=== PATIENT | female | born 1955 | race Hispanic/Latino ===

== ENCOUNTER 2019-05-24 22:46 | Observation (INO) | payer OTHER ==
[2019-05-24 23:41] LABS: Absolute Lymphocytes (CBC) 1.9 K/uL (0.7-4.9); Basophils % 1.3 % (0-1.3); Hematocrit 36.9 % (36.0-45.0); Lymphocytes % 35.5 % (15.3-44.8); MPV 9.9 fL (7.6-11.3); RBC Red Blood Cell Count 4.19 M/uL (3.86-4.86)
[2019-05-24 23:51] LABS: ALT/SGPT 26 U/L (12-78); AST/SGOT 29 U/L (15-37); Albumin 4.3 g/dL (3.4-5.0); Alkaline Phosphatase 78 U/L (45-117); BUN Blood Urea Nitrogen 12 mg/dL (7-18); Bicarbonate 30 mmol/L (21-32); Bilirubin Direct 0.1 mg/dL (0-0.2); Bilirubin Total 0.5 mg/dL (0.2-1.0); Glucose Level 100 mg/dL (74-106); Magnesium 2.1 mg/dL (1.8-2.4); NT PRO-BNP 87 pg/mL (<125); Potassium 3.6 mmol/L (3.5-5.1); Protein, Total 7.6 g/dL (6.4-8.2); Sodium Level 142 mmol/L (136-145); Troponin (Emerg Dept Use Only) < 0.02 ng/mL (0.0-0.045)
[2019-05-24 23:58] LABS: Protime INR 0.96
[2019-05-25] MEDS ORDERED: MAGNE/ALUM HYDROXD 30 ML UCUP ONE (00:22)
[2019-05-25] MEDS ORDERED: LIDOCAINE VISCOUS 2% SOLN 15 ML UDC ONE (00:22)
[2019-05-25] MEDS ORDERED: ALPRAZOLAM 0.25 MG TABLET PO PRN (00:57)
[2019-05-25] MEDS ORDERED: ACETAMINOPHEN 500 MG TAB PO PRN (00:57)
[2019-05-25] MEDS ORDERED: MORPHINE 4 MG/ML SYR IV PRN (00:57)
--- NOTE | 2019-05-25 01:24 | ER ---
Nurse's Notes [facility] Name: Frances Ramos Age: 64 yrs Sex: Female : 1955 Arrival Date: 05/24/2019 Time: 22:51 Bed 5 Private MD: Diagnosis: Chest pain, unspecified Presentation: 05/24 22:52 Presenting complaint: Patient states: "I was sitting down and all the sudden I felt aj1 dizzy and my chest started hurting and I took my blood pressure and it was high, so I took half of my blood pressure medicine and it was still high. Then I started to feel like my tongue was swelling" Reports midsternal chest pain that she describes as a burning sensation. States the pain does not radiates. Denies palpitations or shortness of breath. Transition of care: patient was not received from another setting of care. Onset of symptoms was May 24, 2019 at 20:30. Risk Assessment: Do you want to hurt yourself or someone else? Patient reports no desire to harm self or others. Initial Sepsis Screen: Does the patient meet any 2 criteria? No. Patient's initial sepsis screen is negative. Does the patient have a suspected source of infection? No. Patient's initial sepsis screen is negative. Care prior to arrival: None. 22:52 Method Of Arrival: Ambulatory aj1 22:52 Acuity: TRINITY 3 aj1 Triage Assessment: 22:56 General: Appears in no apparent distress. comfortable, Behavior is calm, cooperative, aj1 appropriate for age. Pain: Complains of pain in mid-sternal area. Neuro: Level of Consciousness is awake, alert, obeys commands. Cardiovascular: Reports chest pain, Patient's skin is warm and dry. Respiratory: Airway is patent Respiratory effort is even, unlabored, Respiratory pattern is regular, symmetrical. Historical: - Allergies: 22:56 No Known Allergies; aj1 - Home Meds: 22:56 losartan oral oral [Active]; multivitamin oral oral [Active]; Probiotic oral oral aj1 [Active]; - PMHx: 22:56 Hypertension; aj1 - Immunization history:: Flu vaccine is not up to date. - Social history:: Smoking status: Patient/guardian denies using tobacco. - Ebola Screening: : Patient denies travel to an Ebola-affected area in the 21 days before illness onset. Screenin:15 Abuse screen: Denies threats or abuse. Denies injuries from another. Nutritional rr5 screening: No deficits noted. Tuberculosis screening: No symptoms or risk factors identified. Fall Risk IV access (20 points). Total Posey Fall Scale indicates No Risk (0-24 pts). Assessment: 23:15 General: Appears in no apparent distress. uncomfortable, Behavior is calm, cooperative, rr5 appropriate for age. Pain: Complains of pain in chest Pain does not radiate. Pain currently is 5 out of 10 on a pain scale. Quality of pain is described as burning, Pain began suddenly, Is intermittent. Neuro: Level of Consciousness is awake, alert, obeys commands, Oriented to person, place, time, situation, Appropriate for age Reports dizziness. Cardiovascular: Reports chest pain, high BP Capillary refill < 3 seconds Patient's skin is warm and dry. Respiratory: Airway is patent Respiratory effort is even, unlabored, Respiratory pattern is regular, symmetrical. GI: No signs and/or symptoms were reported involving the gastrointestinal system. : No signs and/or symptoms were reported regarding the genitourinary system. EENT: No signs and/or symptoms were reported regarding the EENT system. Derm: Skin is intact, is healthy with good turgor, Skin temperature is warm. Musculoskeletal: Circulation, motion, and sensation intact. Capillary refill < 3 seconds. 05/25 00:25 Reassessment: Patient appears in no apparent distress at this time. Patient is alert, rr5 oriented x 3, equal unlabored respirations, skin warm/dry/pink. review done by ED provider with order made and carried out. for repeat troponin at 0130H. 01:10 Reassessment: Patient appears in no apparent distress at this time. Patient and/or rr5 family updated on plan of care and expected duration. Pain level reassessed. Patient is alert, oriented x 3, equal unlabored respirations, skin warm/dry/pink. 02:00 Reassessment: Patient appears in no apparent distress at this time. Patient is alert, rr5 oriented x 3, equal unlabored respirations, skin warm/dry/pink. patient transferred to medical surgical floor, awake and alert, no complaints made. Vital Signs: 05/24 22:56 BP 177 / 94; Pulse 60; Resp 18; Temp 97.5; Pulse Ox 96% on R/A; Weight 68.95 kg (R); aj1 Height 4 ft. 11 in. (149.86 cm) (R); Pain 11/13; 05/25 00:15 BP 163 / 80; Pulse 59; Resp 16; Pulse Ox 98% on R/A; rr5 01:00 BP 146 / 75; Pulse 56; Resp 16; Pulse Ox 95% on R/A; lp1 01:46 BP 145 / 74; Pulse 54; Resp 14; Pulse Ox 98% on R/A; lp1 05/24 22:56 Body Mass Index 30.70 (68.95 kg, 149.86 cm) aj1 ED Course: 05/24 22:51 Patient arrived in ED. cf2 22:55 Triage completed. aj1 22:56 Arm band placed on Patient placed in an exam room. aj1 23:10 EKG done, by ED staff, reviewed by Seamus Martinez MD. rr5 23:15 Zaheer Orellana RN is Primary Nurse. rr5 23:15 Patient has correct armband on for positive identification. Placed in gown. Bed in low rr5 position. Call light in reach. Side rails up X2. monitor technician on. Pulse ox on. NIBP on. 23:17 Seamus Martinez MD is Attending Physician. tw4 23:18 Patient maintains SpO2 saturation greater than 95% on room air. rr5 23:20 Inserted saline lock: 20 gauge in left antecubital area, using aseptic technique. rr5 ,using aseptic technique. inserted by [facility] tech Blood collected. 23:31 XRAY Chest (1 view) In Process Unspecified. EDMS 05/25 01:20 Messi Tucker MD is Hospitalizing Provider. tw4 01:43 No provider procedures requiring assistance completed. Patient admitted, IV remains in lp1 place. Administered Medications: 00:26 Drug: GI Cocktail without - (Maalox Suspension 30 ml, Lidocaine Liquid 2 % 15 rr5 ml) Route: PO; 02:00 Follow up: Response: No adverse reaction rr5 Outcome: 01:23 Decision to Hospitalize by Provider. tw4 01:43 Condition: stable lp1 01:43 Instructed on the need for admit. 01:47 Admitted to Med/surg room 212, with chart, Report called to ASAD Crocker lp1 02:05 Patient left the ED. lp1 Signatures: Dispatcher [employer] EDMalini Noonan RN RN aj1 Sarah Núñez RN RN lp1 Seamus Martinez MD MD tw4 Zaheer Orellana RN RN rr5 Lizet Stephens 2
--- NOTE | 2019-05-25 01:24 | EDPHYS ---
Physician Documentation [facility] Name: Frances Ramos Age: 64 yrs Sex: Female : 1955 Arrival Date: 05/24/2019 Time: 22:51 Bed 5 Private MD: ED Physician Seamus Martinez HPI: 05/25 00:51 This 64 yrs old Female presents to ER via Ambulatory with complaints of Chest tw4 Pain. 00:51 The patient or guardian reports chest pain that is located primarily in the anterior tw4 chest wall. Onset: today. The pain does not radiate. Associated signs and symptoms: Pertinent positives: nausea, Pertinent negatives: abdominal pain, cough, vomiting. The chest pain is described as dull, a heaviness. Duration: The patient or guardian reports a single episode. Modifying factors: The symptoms are alleviated by nothing. the symptoms are aggravated by nothing. The patient has not experienced similar symptoms in the past. Historical: - Allergies: 05/24 22:56 No Known Allergies; aj1 - Home Meds: 22:56 losartan oral oral [Active]; multivitamin oral oral [Active]; Probiotic oral oral aj1 [Active]; - PMHx: 22:56 Hypertension; aj1 - Immunization history:: Flu vaccine is not up to date. - Social history:: Smoking status: Patient/guardian denies using tobacco. - Ebola Screening: : Patient denies travel to an Ebola-affected area in the 21 days before illness onset. ROS: 05/25 00:51 Constitutional: Negative for fever, chills, and weight loss, Eyes: Negative for injury, tw4 pain, redness, and discharge, Respiratory: Negative for shortness of breath, cough, wheezing, and pleuritic chest pain, Abdomen/GI: Negative for abdominal pain, nausea, vomiting, diarrhea, and constipation, Back: Negative for injury and pain, MS/Extremity: Negative for injury and deformity, Skin: Negative for injury, rash, and discoloration, Neuro: Negative for headache, weakness, numbness, tingling, and seizure. Cardiovascular: Positive for chest pain, Negative for edema, orthopnea, palpitations. Exam: 00:51 Constitutional: This is a well developed, well nourished patient who is awake, alert, tw4 and in no acute distress. Head/Face: Normocephalic, atraumatic. Chest/axilla: Normal chest wall appearance and motion. Nontender with no deformity. No lesions are appreciated. Cardiovascular: Regular rate and rhythm with a normal S1 and S2. No gallops, murmurs, or rubs. Normal PMI, no JVD. No pulse deficits. Respiratory: Lungs have equal breath sounds bilaterally, clear to auscultation and percussion. No rales, rhonchi or wheezes noted. No increased work of breathing, no retractions or nasal flaring. Abdomen/GI: Soft, non-tender, with normal bowel sounds. No distension or tympany. No guarding or rebound. No evidence of tenderness throughout. Vital Signs: 05/24 22:56 BP 177 / 94; Pulse 60; Resp 18; Temp 97.5; Pulse Ox 96% on R/A; Weight 68.95 kg (R); aj1 Height 4 ft. 11 in. (149.86 cm) (R); Pain 5/10; 05/25 00:15 BP 163 / 80; Pulse 59; Resp 16; Pulse Ox 98% on R/A; rr5 01:00 BP 146 / 75; Pulse 56; Resp 16; Pulse Ox 95% on R/A; lp1 01:46 BP 145 / 74; Pulse 54; Resp 14; Pulse Ox 98% on R/A; lp1 05/24 22:56 Body Mass Index 30.70 (68.95 kg, 149.86 cm) aj1 MDM: 05/24 23:18 Patient medically screened. tw4 05/25 00:51 Differential diagnosis: acute myocardial infarction, acute pericarditis, coronary tw4 artery disease chest wall pain, costochondritis, pancreatitis, peptic ulcer disease, pericarditis, pulmonary embolus, thoracic aortic disection. Data reviewed: vital signs, nurses notes. Data interpreted: Pulse oximetry: Interpretation: normal. Test interpretation: by ED physician or midlevel provider: ECG, plain radiologic studies. :18 Counseling: I had a detailed discussion with the patient and/or guardian regarding: the tw4 historical points, exam findings, and any diagnostic results supporting the discharge/admit diagnosis. 05/24 23:15 Order name: Basic Metabolic Panel tw4 05/24 23:15 Order name: CBC with Diff tw4 05/24 23:15 Order name: LFT's tw4 05/24 23:15 Order name: Magnesium tw4 05/24 23:15 Order name: NT PRO-BNP tw4 05/24 23:15 Order name: PT-INR 4 05/24 23:15 Order name: Troponin (emerg Dept Use Only) tw 05/24 23:15 Order name: XRAY Chest (1 view) tw4 05/25 01:05 Order name: Echo with Doppler EDDE 05/25 01:05 Order name: Basic Metabolic Panel EDDE 05/25 01:05 Order name: CBC with Automated Diff EDDE 05/25 01:07 Order name: Troponin I EDDE 05/25 01:07 Order name: Troponin I EDDE 05/24 23:15 Order name: EKG; Complete Time: 23:16 tw4 05/24 23:15 Order name: Cardiac monitoring; Complete Time: 23:15 4 05/24 23:15 Order name: EKG - Nurse/Tech; Complete Time: 23:15 4 05/24 23:15 Order name: IV Saline Lock; Complete Time: 23:16 tw4 05/24 23:15 Order name: Labs collected and sent; Complete Time: 23:16 tw4 05/24 23:15 Order name: O2 Per Protocol; Complete Time: 23:16 tw4 05/24 23:15 Order name: O2 Sat Monitoring; Complete Time: 23:16 tw4 05/25 01:05 Order name: Heart Healthy EDDE EC:18 Rate is 58 beats/min. Rhythm is regular. QRS [place] is Normal. [place] interval is normal. QRS tw4 interval is normal. QT interval is normal. No Q waves. T waves are Flattened in lead V3. No ST changes noted. Clinical impression: NSR w/ Non-specific ST/T Changes. Interpreted by me. Reviewed by me. Administered Medications: 00:26 Drug: GI Cocktail without - (Maalox Suspension 30 ml, Lidocaine Liquid 2 % 15 rr5 ml) Route: PO; 02:00 Follow up: Response: No adverse reaction rr5 Disposition: 05/25/19 01:23 Hospitalization ordered by Messi Tucker for Observation. Preliminary diagnosis is Chest pain, unspecified. - Bed requested for Telemetry/MedSurg (observation). - Status is Observation. lp1 - Condition is Stable. - Problem is new. - Symptoms have improved. UTI on Admission? No Signatures: Dispatcher [employer] EDMS Malini Barth, RN RN aj1 Sarah Núñez RN RN lp1 Lo Martin, ASAD RN Seamus Martinez MD MD tw4 Zaheer Orellana, RN RN rr5 Corrections: (The following items were deleted from the chart) 01:25 01:23 Hospitalization Ordered by Messi Tucker MD for Observation. Preliminary cg diagnosis is Chest pain, unspecified. Bed requested for Telemetry/MedSurg (observation). Status is Observation. Condition is Stable. Problem is new. Symptoms have improved. UTI on Admission? No. tw4 02:05 01:25 05/25/2019 01:23 Hospitalization Ordered by Messi Tucker MD for Observation. lp1 Preliminary diagnosis is Chest pain, unspecified. Bed requested for Telemetry/MedSurg (observation). Status is Observation. Condition is Stable. Problem is new. Symptoms have improved. UTI on Admission? No. cg
[2019-05-25 02:41] VITALS: BMI 29.7
[2019-05-25 03:41] LABS: Urine Appearance CLEAR; Urine Bilirubin NEGATIVE (NEG); Urine Blood NEGATIVE (NEG); Urine Color YELLOW; Urine Glucose NEGATIVE (NEG); Urine Protein NEGATIVE (NEG); Urine Urobilinogen 0.2 mg/dL (0.2-1.0); Urine pH 6.5 (5.0-7.0)
[2019-05-25 03:42] LABS: Urine Microscopic Reflex ORDER UMIC
[2019-05-25 05:44] LABS: Urine Bacteria <20 /HPF (<20); Urine Culture Reflex Order REFLEXED; Urine RBC <5 /HPF (NONE SEEN)
[2019-05-25] MEDS: METOPROLOL TAR 50 MG TAB PO SCH ×2 (05:46→08:05)
[2019-05-25 05:53] VITALS: O2SAT 96
[2019-05-25 06:02] LABS: Absolute Lymphocytes (CBC) 1.5 K/uL (0.7-4.9); Basophils % 1.3 % (0-1.3); Hematocrit 35.3 % (36.0-45.0); Lymphocytes % 37.2 % (15.3-44.8); MPV 9.8 fL (7.6-11.3); RBC Red Blood Cell Count 3.99 M/uL (3.86-4.86)
[2019-05-25 06:11] LABS: Potassium 3.5 mmol/L (3.5-5.1)
--- NOTE | 2019-05-25 06:31 | RAD REPORT ---
EXAM DESCRIPTION: RAD - Chest Single View - 05/24/2019 11:32 pm CLINICAL HISTORY: CHEST PAIN Chest pain. COMPARISON: No comparisons FINDINGS: Portable technique limits examination quality. The lungs are grossly clear. The heart is upper limit normal in size. No displaced fractures. IMPRESSION: No acute intrathoracic process suspected.
[2019-05-25] MEDS ORDERED: WATER FOR INJ,STERILE 10 ML IV ONE (08:01)
[2019-05-25] MEDS ORDERED: HYDROCORTISONE SUC 100 MG INJ IV ONE (08:01)
[2019-05-25] MEDS ORDERED: ASPIRIN EC 81 MG TAB PO SCH (09:00)
[2019-05-25] MEDS ORDERED: ENOXAPARIN 40 MG/0.4 ML SQ SCH (09:00)
--- NOTE | 2019-05-25 09:43 | EKG ---
Test Date: 2019-05-24 Test Time: 23:04:04 Pharmacy Retail Support Specialist: MANUEL MEASUREMENT RESULTS: Intervals: Rate: 58 OH: 174 QRSD: 80 QT: 462 QTc: 453 [place]: P: 62 OH: 174 QRS: -6 T: 62 INTERPRETIVE STATEMENTS: Sinus bradycardia Cannot rule out Anterior infarct, age undetermined Abnormal ECG No previous ECG available for comparison Electronically Signed On 05-25-19 09:41:45 RESIDENTIAL CONCIERGE by Don Quintana
[2019-05-25 10:30] VITALS: TEMP 98.2
--- NOTE | 2019-05-25 13:35 | P.HP ---
Certification for Inpatient Patient admitted to: Observation With expected LOS: <2 Midnights Patient will require the following post-hospital care: None Practitioner: I am a practitioner with admitting privileges, knowledge of patient current condition, hospital course, and medical plan of care. Services: Services provided to patient in accordance with Admission requirements found in Title 42 Section 412.3 of the Code of Federal Regulations Patient History Date of Service: 05/25/19 Reason for admission: CHEST PAIN RULE OUT ACUTE CORONARY SYNDROME History of Present Illness: Patient is a 64-year-old female who presents to the hospital with chest discomfort. She has been doing some exercising with weights. She was doing some butterflies and some presses as well as some leg exercises. She started hurting after a few hours of being at home. She says she was having a little snack when the pain started. Her pain was not letting up so she came into the hospital for further evaluation. In the emergency room her EKG and troponins have been negative. We have consulted Cardiology. If her workup is unremarkable she should be stable for discharge home. Allergies levofloxacin [From Levaquin] Allergy (Verified 05/25/19 02:11) Itching/Hives/Rash Home Medications: Lactobacillus Acidophilus [Probiotic Acidophilus] 1 tab PO DAILY 05/25/19 Losartan Potassium 100 mg PO DAILY 05/25/19 Multivitamin/Iron/Folic Acid [Centrum Adults Tablet] 1 tab PO DAILY 05/25/19 - Past Medical/Surgical History Has patient received pneumonia vaccine in the past: No Diabetic: No -: Hypertension -: hysterectomy -: -: back sx - Family History Father Medical History: Stroke, Cancer Mother Medical History: Hypertension Brother Medical History: Diabetes - Social History Smoking Status: Never smoker Alcohol use: No CD- Drugs: No Place of Residence: Home Review of Systems 10-point ROS is otherwise unremarkable Physical Examination - Vital Signs Temperature: 98.2 F Blood Pressure: 169/79 Pulse: 59 Respirations: 18 Pulse Ox (%): 95 - Physical Exam General: Alert, In no apparent distress, Oriented x3 HEENT: Atraumatic, PERRLA, Mucous membr. moist/pink, EOMI, Sclerae nonicteric Neck: Supple, 2+ carotid pulse no bruit, No LAD, Without JVD or thyroid abnormality Respiratory: Clear to auscultation bilaterally, Normal air movement Cardiovascular: Regular rate/rhythm, Normal S1 S2 Gastrointestinal: Normal bowel sounds, Soft and benign, Non-distended, No tenderness Musculoskeletal: No clubbing, No swelling, Tenderness ( musculoskeletal tenderness around the sternal region. Most likely costochondritis) Integumentary: No rashes Neurological: Normal gait, Normal speech, Normal strength at 5/5 x4 extr, Normal tone, Sensation intact, Cranial nerves 3-12 intact, Normal affect Lymphatics: No axilla or inguinal lymphadenopathy - Studies Laboratory Data (last 24 hrs) 05/24/19 23:18: PT 11.4, INR 0.96 05/24/19 23:18: WBC 5.2, Hgb 13.0, Hct 36.9, Plt Count 186 05/24/19 23:18: Sodium 142, Potassium 3.6, BUN 12, Creatinine 0.87, Glucose 100 , Magnesium 2.1, Total Bilirubin 0.5, AST 29, ALT 26, Alkaline Phosphatase 78 Assessment & Plan - Problems (Diagnosis) (1) Chest pain, rule out acute myocardial infarction Current Visit: Yes Status: Acute (2) HTN (hypertension) Current Visit: Yes Status: Acute Qualifiers: Hypertension type: essential hypertension Qualified Code(s): I10 - Essential (primary) hypertension - Plan PLAN: 1. Serial troponins and EKG 2. Cardiology consultation 3. Echocardiogram and outpatient stress test(pending cardiology evaluation) 4. Anti-platelet therapy, anti coagulation, beta-anderson, statin, and O2 as needed 5. IV morphine for pain 6. Nitro p.r.n. 7. GI/DVT prophylaxis Discharge Plan: Home Plan to discharge in: Greater than 2 days - Advance Directives Does patient have a Living Will: No Does patient have a Durable POA for Healthcare: Yes - Code Status/Comfort Care Code Status Assessed: Yes Code Status: Full Code Critical Care: No Time Spent Managing PTS Care (In Minutes): 50
[2019-05-25 17:39] VITALS: BP 133/64
--- NOTE | 2019-05-26 08:03 | ECHO ---
HEIGHT: 4 ft 11 in WEIGHT: 147 lb 1.6 oz DATE OF STUDY: 05/25/[address]: Messi Tucker MD 2-DIMENSIONAL: YES M.MODE: YES DOPPLER: YES COLOR FLOW: YES TDS: YES PORTABLE: NO DEFINITY: NO BUBBLE STUDY: NO DIAGNOSIS: CHEST PAIN CARDIAC HISTORY: CATHERIZATION: NO SURGERY: NO PROSTHETIC VALVE: NO PACEMAKER: NO MEASUREMENTS (cm) DIASTOLIC (NORMALS) SYSTOLIC (NORMALS) IVSd 1.1 (0.6-1.2) LA Diam 3.1 (1.9-4.0) LVEF 74% LVIDd 3.9 (3.5-5.7) LVIDs 2.3 (2.0-3.5) %FS 42% LVPWd 1.3 (0.6-1.2) Ao Diam 2.9 (2.0-3.7) 2 DIMENSIONAL ASSESSMENT: RIGHT ATRIUM: NORMAL LEFT ATRIUM: NORMAL RIGHT VENTRICLE: NORMAL LEFT VENTRICLE: NORMAL TRICUSPID VALVE: NORMAL MITRAL VALVE: NORMAL PULMONIC VALVE: NORMAL AORTIC VALVE: NORMAL PERICARDIAL EFFUSION: NONE AORTIC ROOT: NORMAL LEFT VENTRICULAR WALL MOTION: NORMAL DOPPLER/COLOR FLOW: NORMAL COMMENTS: TECHNICALLY DIFFICULT STUDY. GROSSLY NORMAL LEFT VENTRICULAR SIZE AND FUNCTION. NO WALL MOTION ABNORMALITY. NO EFFUSION. TECHNOLOGIST: Ivonne BURRELL
== END 2019-05-25 17:41 | disposition home or self-care (01) ==
LOC: ER 22:46 → ERHOLD 05-25 00:58 → 2ND 05-25 01:50
PROVIDERS: ADMIT Hospitalist; ATTEND Hospitalist
DX: R07.9 Chest pain, unspecified (principal); I10 Essential (primary) hypertension
CPT/HCPCS: 93005; 93306; 87088; 85025 ×2; 80048 ×2; 36415; 83735; 85610; 80076; 84484 ×3; 83880; 71045; 99285; J1650; J1720; G0378 ×2; 81003; 81015; 87086

== ENCOUNTER 2022-05-18 09:05 | Emergency (ER) | payer OTHER ==
--- NOTE | 2022-05-18 09:43 | RAD REPORT ---
EXAM DESCRIPTION: CT - Ct Stroke Brain Wo Cont - 05/18/2022 9:34 am CLINICAL HISTORY: Neuro deficit, acute, stroke suspected COMPARISON: <Comparisons> TECHNIQUE: All CT scans are performed using dose optimization technique as appropriate and may inclu de automated exposure control or mA/KV adjustment according to patient size. FINDINGS: No intracranial hemorrhage, hydrocephalus or extra-axial fluid collection.No areas of brai n edema or evidence of midline shift. The paranasal sinuses and mastoids are clear. The calvarium is intact. IMPRESSION: No acute intracranial abnormality. Discussed with Kathya Jim by Dr. Ruiz at 0937 on 05/18/22
[2022-05-18 10:15] LABS: Absolute Lymphocytes (CBC) 1.4 K/uL (0.7-4.9); Hematocrit 37.9 % (36.0-45.0); Lymphocytes % 27.2 % (15.3-44.8); MCV 90.6 fL (80-100); MPV 8.8 fL (7.6-11.3); RBC Red Blood Cell Count 4.19 M/uL (3.86-4.86)
[2022-05-18 10:18] LABS: Protime INR 0.98
--- NOTE | 2022-05-18 10:21 | RAD REPORT ---
EXAM DESCRIPTION: RAD - Chest Single View - 05/18/2022 10:05 am CLINICAL HISTORY: MD discretion COMPARISON: Chest Single View dated 04/12/2022; Chest Single View dated 05/24/2019 FINDINGS: Lines: None. Lungs: No evidence of edema or pneumonia. Pleural: No significant pleural effusions or pneumothorax. Cardiac: The heart size is within normal limits. Mediastinum: Within normal limits. Bones: No acute fractures. Other: None IMPRESSION: No acute cardiopulmonary disease.
[2022-05-18 10:34] LABS: Potassium 3.9 mmol/L (3.5-5.1); Troponin High Sensitivity 5.3 pg/mL (<58.9)
--- NOTE | 2022-05-18 10:35 | RAD REPORT ---
EXAM DESCRIPTION: CT - Head angio - 05/18/2022 10:21 am CLINICAL HISTORY: R sided paresthesias COMPARISON: Ct Stroke Brain Wo Cont dated 05/18/2022; Ct Stroke Brain Wo Cont dated 04/12/2022 TECHNIQUE: CT angiography of the head was performed with MIPs. All CT scans are performed using dose optimization technique as appropriate and may include automated exposure control or mA/KV adjustment according to patient size. FINDINGS: Anterior circulation: No aneurysm or large vessel occlusion. No hemodynamically significant stenosis. No arteriovenous malf ormation identified. Posterior circulation: No aneurysm or large vessel occlusion. No hemodynamically significant stenosis. No arteriovenous malf ormation identified. Right dominant vertebral artery. IMPRESSION: No significant flow abnormality is detected.
--- NOTE | 2022-05-18 10:44 | RAD REPORT ---
EXAM DESCRIPTION: CT - Neck Angio - 05/18/2022 10:22 am CLINICAL HISTORY: R sided paresthesias, hx of CVA COMPARISON: No comparisons TECHNIQUE: CT angiography of the neck vessels was performed with MIPs. All CT scans are performed using dose optimization technique as appropriate and may include automated exposure control or mA/KV adjustment according to patient size. FINDINGS: A left aortic arch is identified with normal three vessel configuration of the great vesse ls. No significant flow abnormality is seen of the common carotid bilaterally. No significant stenosis is identified involving the cervical segments of both internal carotid arteri es. Normal flow is seen within both vertebral arteries. Left dominant vertebral artery. IMPRESSION: No significant flow abnormality of the neck vessels is identified.
--- NOTE | 2022-05-18 11:26 | ER ---
Nurse's Notes [facility] Name: Frances Ramos Age: 67 yrs Sex: Female : 1955 Arrival Date: 05/18/2022 Time: 09:06 Bed 8 Private MD: Diagnosis: Paresthesia of skin Presentation: 05/18 09:14 Chief complaint: Patient states: Woke up today at 0558 with tingling/numbness to right aa5 arm, right leg, and right side of face. Reports last known normal was today at 0000. 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 Pt states "my right hand has been tingling for 2 days but now it's my whole arm and I also had tingling to the right side of my face from my previous stroke that would come and go but now the tingling is constant". 09:14 Coronavirus screen: At this time, the client does not indicate any symptoms associated aa5 with coronavirus-19. Ebola Screen: Patient denies travel to an Ebola-affected area in the 21 days before illness onset. Initial Sepsis Screen: Does the patient meet any 2 criteria? No. Patient's initial sepsis screen is negative. Does the patient have a suspected source of infection? No. Patient's initial sepsis screen is negative. Risk Assessment: Do you want to hurt yourself or someone else? Patient reports no desire to harm self or others. Onset of symptoms was May 18, 2022. 09:14 Acuity: TRINITY 2 aa5 09:14 Method Of Arrival: Ambulatory aa5 09:18 Note CODE STROKE CALLED. PT TO CT. bp Triage Assessment: 09:15 General: Appears in no apparent distress. Behavior is cooperative, appropriate for age, bp anxious. Pain: Denies pain. EENT: No deficits noted. Neuro: Reports numbness ENTIRE R SIDE. Cardiovascular: No deficits noted. Respiratory: No deficits noted. GI: No signs and/or symptoms were reported involving the gastrointestinal system. : No signs and/or symptoms were reported regarding the genitourinary system. Derm: No deficits noted. Musculoskeletal: No deficits noted. Historical: - Allergies: 09:17 HYDROCODONE; aa5 09:17 Levaquin; aa5 09:17 peanuts; aa5 09:17 SHELLFISH; aa5 - PMHx: 09:17 CVA; Hypertension; Hemorrhagic CVA; aa5 - Immunization history:: Adult Immunizations unknown. - Social history:: Smoking status: Patient denies any tobacco usage or history of. Screenin:15 Abuse screen: Denies threats or abuse. Denies injuries from another. Nutritional bp screening: No deficits noted. Tuberculosis screening: No symptoms or risk factors identified. Fall Risk None identified. Assessment: 09:15 General: PT TO CT. NIHSS 0. bp 10:15 Reassessment: No changes from previously documented assessment. Patient and/or family bp updated on plan of care and expected duration. Pain level reassessed. 11:15 Reassessment: No changes from previously documented assessment. Patient and/or family bp updated on plan of care and expected duration. Pain level reassessed. 11:41 Reassessment: PT DC HOME AMBULATORY WITH FAMILY, DX WITH PARASTHESIA OF SKIN. bp Vital Signs: 09:14 BP 155 / 84; Pulse 62; Resp 16 S; Temp 98.0(TE); Pulse Ox 99% on R/A; Weight 67.13 kg aa5 (R); Height 4 ft. 11 in. (149.86 cm) (R); 11:40 BP 114 / 52; Pulse 57; Resp 16; Pulse Ox 100% ; bp 09:14 Body Mass Index 29.89 (67.13 kg, 149.86 cm) aa5 ED Course: 09:06 Patient arrived in ED. am2 09:14 Arm band placed on Patient placed in an exam room, on a stretcher. aa5 09:15 Patient has correct armband on for positive identification. Allergy band placed. Bed in bp low position. Call light in reach. Side rails up X 1. 09:18 Ian Lewis, ASAD is Primary Nurse. bp 09:20 Zoraida Garrido MD is Attending Physician. sd2 09:27 Triage completed. aa5 09:35 CT Stroke Brain w/o Contrast In Process Unspecified. EDMS 09:50 Inserted saline lock: 20 gauge in left antecubital area, using aseptic technique. Blood bp collected. 10:07 Stroke CXR 1 View In Process Unspecified. EDMS 10:23 Head angio In Process Unspecified. EDMS 10:24 CT Neck Angio In Process Unspecified. EDMS 11:25 Steve Malin MD is Referral Physician. sd2 11:41 No provider procedures requiring assistance completed. IV discontinued, intact, bp bleeding controlled, No redness/swelling at site. Pressure dressing applied. Administered Medications: No medications were administered Medication: 11:17 VIS not applicable for this client. bp Outcome: 11:26 Discharge ordered by . sd2 11:41 Discharged to home ambulatory, with family. bp 11:41 Condition: stable 11:41 Discharge instructions given to patient, Instructed on discharge instructions, follow up and referral plans. medication usage, Demonstrated understanding of instructions, follow-up care, medications, Prescriptions given X 1. 11:50 Patient left the ED. bp Signatures: Dispatcher [employer] EDMS Urszula Fraser RN RN aa5 Latoya Haque am2 Ian Lewis RN RN bp Zoraida Garrido MD MD sd2 Corrections: (The following items were deleted from the chart) 09:27 09:17 Arm band placed on aa5 aa5 11:42 11:40 Pulse 57bpm; Resp 16bpm; Pulse Ox 100%; bp bp
--- NOTE | 2022-05-18 11:26 | EDPHYS ---
Physician Documentation [facility] Name: Frances Ramos Age: 67 yrs Sex: Female : 1955 Arrival Date: 05/18/2022 Time: 09:06 Bed 8 Private MD: ED Physician Zoraida Garrido HPI: 05/18 09:39 This 67 yrs old Female presents to ER via Ambulatory with complaints of right sd2 sided numbness, High Blood Pressure. 09:39 67 yo F with hx of hemorrhagic CVA presents with CC of entire R sided tingling. Reports sd2 numbness but when asked further, she more describes a tingling and burning sensation ongoing since she woke up around 0558 this AM. Last known normal time was when she went to bed at midnight. Denies any weakness, facial droop, CP, SOB. Seen here last month for similar symptoms and was admitted with normal MRI and workup and told to start baby ASA 3x weekly. Pt scheduled to follow up with neuro on 05/27. Also reports her PCP told her not to take the ASA so she has not been taking it.. Historical: - Allergies: 09:17 HYDROCODONE; aa5 09:17 Levaquin; aa5 09:17 peanuts; aa5 09:17 SHELLFISH; aa5 - PMHx: 09:17 CVA; Hypertension; Hemorrhagic CVA; aa5 - Immunization history:: Adult Immunizations unknown. - Social history:: Smoking status: Patient denies any tobacco usage or history of. ROS: 09:39 Constitutional: Negative for fever, chills, and weight loss, Eyes: Negative for injury, sd2 pain, redness, and discharge, Cardiovascular: Negative for chest pain, palpitations, and edema, Respiratory: Negative for shortness of breath, cough, wheezing. Abdomen/GI: Negative for abdominal pain, nausea, vomiting, diarrhea. MS/Extremity: Negative for injury and deformity, Skin: Negative for injury, rash, and discoloration, Neuro: Negative for headache, positive for numbness and tingling. Exam: 09:39 Constitutional: This is a well developed, well nourished patient who is awake, alert, sd2 and in no acute distress. Head/Face: Normocephalic, atraumatic. Eyes: EOMI, normal conjunctiva bilaterally Chest/axilla: Normal chest wall appearance and motion. Nontender with no deformity. Cardiovascular: Regular rate and rhythm with a normal S1 and S2. No gallops, murmurs, or rubs. 2+ distal pulses. Respiratory: Lungs have equal breath sounds bilaterally, clear to auscultation and percussion. No rales, rhonchi or wheezes noted. No increased work of breathing, no retractions or nasal flaring. Abdomen/GI: Soft, non-tender, with normal bowel sounds. No guarding or rebound. No evidence of tenderness throughout. Skin: Warm, dry with normal turgor. Normal color with no rashes, no lesions, and no evidence of cellulitis. MS/ Extremity: Pulses equal, no cyanosis. Neurovascular intact. Full, normal range of motion. Ambulatory without difficulty. Neuro: Awake and alert, GCS 15, oriented to person, place, time, and situation. Cranial nerves II-XII grossly intact. Motor strength 5/5 in all extremities. Sensory grossly intact. Cerebellar exam normal. Normal gait. Pt endorses tingling sensation to all R sided extremities and R side of face on sensory exam but sensation is intact. Psych: Awake, alert, with orientation to person, place and time. Behavior, mood, and affect are within normal limits. 09:52 ECG was reviewed by the Attending Physician. NSR, rate 61, no STEMI criteria sd2 Vital Signs: 09:14 BP 155 / 84; Pulse 62; Resp 16 S; Temp 98.0(TE); Pulse Ox 99% on R/A; Weight 67.13 kg aa5 (R); Height 4 ft. 11 in. (149.86 cm) (R); 11:40 BP 114 / 52; Pulse 57; Resp 16; Pulse Ox 100% ; bp 09:14 Body Mass Index 29.89 (67.13 kg, 149.86 cm) aa5 MDM: 09:20 Patient medically screened. sd2 09:39 Differential diagnosis: hypertensive crisis, Malignant HTN, CVA, intracerebral sd2 hemorrhage, among others. Data reviewed: vital signs, nurses notes. 09:43 Data reviewed: old medical records. sd2 11:21 Data reviewed: lab test result(s), EKG, radiologic studies. Counseling: I had a sd2 detailed discussion with the patient and/or guardian regarding: the historical points, exam findings, and any diagnostic results supporting the discharge/admit diagnosis, lab results, radiology results, the need for outpatient follow up, to return to the emergency department if symptoms worsen or persist or if there are any questions or concerns that arise at home. Medical screen evaluation [facility]. [facility]. Physician consultation: Steve Malin MD regarding patient's condition, Recommends baby ASA 81 mg every 3 days and follow up outpatient. Likely healing neurons and sensory disturbances from prior CVA. Doubt new CVA at this time. Can also start Gabapentin 100 mg TID and he will follow up in clinic.. ED course: Labs and imaging reviewed. Labs grossly WNCL. EKG with no ischemic changes. CXR with no acute process. CT and CTA head/neck with no signs of occlusion, bleeding or CVA. Discussed case with Dr. Malin, Neurology. Offered admission for MRI but likely would not loom changer and no MRI on the weekends. Pt is comfortable with plan for discharge home with Gabapentin and outpatient follow up with PCP and Dr. Malin. Advised of recommendation for ASA 81 mg and pt verbalizes understanding of discharge plan and strict return precautions.. 05/18 09:21 Order name: Basic Metabolic Panel; Complete Time: 10:05/18 09:21 Order name: CBC with Diff; Complete Time: :05/18 09:21 Order name: High Sensitivity Troponin; Complete Time: 10:05/18 09:21 Order name: Protime (+inr); Complete Time: 10:05/18 09:21 Order name: Ptt, Activated; Complete Time: :05/18 10:02 Order name: Glucose, Ancillary Testing; Complete Time: 10:14 EDMS 05/18 09:21 Order name: CT Stroke Brain w/o Contrast; Complete Time: 10:00 05/18 09:21 Order name: Stroke CXR 1 View; Complete Time: 10:39 05/18 09:21 Order name: EKG; Complete Time: 09:22 05/18 09:21 Order name: Accucheck; Complete Time: 10:09 05/18 09:21 Order name: Cardiac monitoring; Complete Time: 10:05/18 09:27 Order name: CT Head Angio sd2 05/18 09:27 Order name: CT Neck Angio; Complete Time: 10:52 sd2 05/18 09:31 Order name: Head angio; Complete Time: 10:39 EDDE 05/18 09:21 Order name: EKG - Nurse/Tech; Complete Time: :05/18 09:21 Order name: IV Saline Lock; Complete Time: :05/18 09:21 Order name: Labs collected and sent; Complete Time: 05/18 09:21 Order name: NPO; Complete Time: 05/18 09:21 Order name: O2 Per Protocol; Complete Time: :05/18 09:21 Order name: O2 Sat Monitoring; Complete Time: 05/18 09:21 Order name: Stroke Swallow Screen; Complete Time: : Administered Medications: No medications were administered Disposition Summary: 05/18/22 11:26 Discharge Ordered Location: Home sd2 Problem: an acute exacerbation sd2 Symptoms: have improved sd2 Condition: Stable sd2 Diagnosis - Paresthesia of skin sd2 Followup: sd2 - With: Private Physician - When: 2 - 3 days - Reason: Recheck today's complaints, Continuance of care, Re-evaluation by your physician Followup: sd2 - With: Steve Malin MD - When: 2 - 3 days - Reason: Recheck today's complaints, Continuance of care, Re-evaluation by your physician Discharge Instructions: - Discharge Summary Sheet sd2 - Paresthesia sd2 - Peripheral Neuropathy sd2 Forms: - Medication Reconciliation Form sd2 - Thank You Letter sd2 - Antibiotic Education sd2 - Prescription Opioid Use sd2 Prescriptions: - gabapentin 100 mg Oral capsule - take 1 capsule by ORAL route 3 times per day; 90 capsule; Refills: 0, Product sd2 Selection Permitted Signatures: Dispatcher [employer] Urszula Mckeon RN RN aa5 Zoraida Garrido MD MD sd2
[2022-05-18 11:59] VITALS: TEMP 98
[2022-05-18 12:05] VITALS: BP 114/52; O2SAT 100
--- NOTE | 2022-05-20 15:11 | EKG ---
Test Date: 2022-05-18 Test Time: 09:36:06 House Rn: BP MEASUREMENT RESULTS: Intervals: Rate: 61 TX: 170 QRSD: 76 QT: 452 QTc: 455 Sandy: P: 62 TX: 170 QRS: 5 T: 63 INTERPRETIVE STATEMENTS: Normal sinus rhythm Cannot rule out Anterior infarct, age undetermined Abnormal ECG Compared to ECG 04/12/2022 07:33:57 Myocardial infarct finding now present ST (T wave) deviation no longer present Electronically Signed On 05-20-22 15:09:30 CELL REPAIRER by Joshua Sarmiento
== END 2022-05-18 11:50 | disposition home or self-care (01) ==
LOC: ER 09:05
DX: R20.2 Paresthesia of skin (principal); I10 Essential (primary) hypertension; Z86.73 Personal history of transient ischemic attack (TIA), and cerebral infarction without residual deficits; Z88.1 Allergy status to other antibiotic agents; Z88.5 Allergy status to narcotic agent; Z91.010 Allergy to peanuts; Z91.013 Allergy to seafood
CPT/HCPCS: 36415; 70450; 70496; 70498; 71045; 80048; 82565; 82947; 84484; 85025; 85610; 85730; 93005; 99284